=== PATIENT | female | born 1940 | race Caucasian/White ===

== ENCOUNTER → 2017-04-10 | Outpatient (CLI) | payer MEDICARE ==
[~2017-04-10] MED LIST: AMLO5TAB2 PO; ASPI-110 PO; LEVO75TA3 PO; LOSA50TA PO; METF500T PO; SIMV20TA PO; SPIR50TA PO; VITA100064 PO; VITA2000 PO; VITATAB43 PO
[2017-04-10 13:14] LABS: BLOOD, URINE NEG (NEG); COMMENT (UR) CULT NOT INDICATED; CULTURE IF INDICATED CULT NOT INDICATED; GLUCOSE,URINE NEG (NEG); KETONE, URINE NEG (NEG); MUCUS URINE FEW /lpf (OCC); NITRITE,URINE NEG (NEG); PH, URINE 5.5 (5.0-8.5); SQUAMOUS EPITHELIAL CELL URINE <1 /hpf (0-5); URINE COLOR YELLOW (YELLW/STRAW)
--- NOTE | 2017-04-10 13:15 | RADRPT ---
EXAM DATE/TIME: 04/10/2017 12:57 [facility] COMPARISON: CHEST PA & LAT, June 09, 2015, 15:27. INDICATIONS : Evaluate for pneumonia, pneumothorax or communicable disease. Preop chest for anterior cervical fusio n on 04/12/17, no chest complaints at this time MEDICAL HISTORY : None. SURGICAL HISTORY : None. ENCOUNTER: Initial ACUITY: 1 day PAIN SCORE: 0/10 LOCATION: Bilateral chest FINDINGS: PA and lateral views of the chest demonstrate the lungs to be symmetrically aerated without evidence of mass, infiltrate or effusion. There is some hyperaeration bilaterally. There is stable chronic int erstitial changes bilaterally. The cardiomediastinal contours are unremarkable. Osseous structures a re intact. CONCLUSION: No acute disease. No significant change has occurred. Heladio Raymundo MD on April 10, 2017 at 13:13 Board Certified Radiologist. This report was verified electronically.
[2017-04-10 13:16] LABS: AUTOMATED NEUTROPHIL # 5.4 TH/MM3 (1.8-7.7); BASOPHIL # 0.1 TH/MM3 (0-0.2); BASOPHIL % 0.6 % (0.0-2.0); EOSINOPHIL # 0.3 TH/MM3 (0-0.4); EOSINOPHIL % 3.2 % (0.0-4.0); HEMATOCRIT 43.6 % (35.0-46.0); HEMO FLAGS DIFF FINAL; LYMPH % 27.9 % (9.0-44.0); LYMPHOCYTE # 2.5 TH/MM3 (1.0-4.8); MEAN CELL VOLUME 89.8 FL (80.0-100.0); MEAN CORPUSCULAR HEMOGLOBIN 30.1 PG (27.0-34.0); MEAN CORPUSCULAR HGB CONC 33.5 % (32.0-36.0); MONO % 9.2 % (0.0-8.0); NEUT % 59.1 % (16.0-70.0); PLATELET COUNT 313 TH/MM3 (150-450); RED BLOOD COUNT 4.86 MIL/MM3 (4.00-5.30); RED CELL DISTRIBUTION WIDTH 13.2 % (11.6-17.2); WHITE BLOOD COUNT 9.1 TH/MM3 (4.0-11.0)
[2017-04-10 13:25] LABS: APTT (PATIENT) 28.1 SEC (24.3-30.1); PROTHROMBIN TIME - PATIENT 10.8 SEC (9.8-11.6)
[2017-04-10 13:45] LABS: ALKALINE PHOSPHATASE 92 U/L (45-117); ALT (GPT) 21 U/L (10-53); TOTAL BILIRUBIN ADULT 0.5 MG/DL (0.2-1.0)
[2017-04-10 13:54] LABS: ANION GAP 7 MEQ/L (5-15); AST (GOT) 20 U/L (15-37); BICARBONATE 28.7 MEQ/L (21.0-32.0); BLOOD UREA NITROGEN 13 MG/DL (7-18); CHLORIDE 104 MEQ/L (98-107); GLOMERULAR FILTRATION RATE 68 ML/MIN (>89); GLUCOSE,FASTING 91 MG/DL (74-99); POTASSIUM 4.2 MEQ/L (3.5-5.1); SODIUM (NA) 140 MEQ/L (136-145)
--- NOTE | 2017-04-11 09:40 | EKG ---
Date Performed: 04/10/2017 Time Performed: 12:08:01 PTAGE: 76 years EKG: Sinus rhythm WITH FREQUENT VENTRICULAR PREMATURE COMPLEXES MARKED LEFT AXIS DEVIATION RIGHT BUNDLE BRANCH BLOCK A BNORMAL ECG NO PREVIOUS TRACING DOCTOR: Davion Deluna Interpretating Date/Time 04/11/2017 09:38:53
== END ==
LOC: CPRE 11:53
PROVIDERS: ATTEND Neurological Surgery
DX: Z01.810 Encounter for preprocedural cardiovascular examination (principal); Z01.811 Encounter for preprocedural respiratory examination; Z01.812 Encounter for preprocedural laboratory examination; Z01.818 Encounter for other preprocedural examination; Z79.01 Long term (current) use of anticoagulants; R94.31 Abnormal electrocardiogram [ECG] [EKG]; M48.02 Spinal stenosis, cervical region; M50.30 Other cervical disc degeneration, unspecified cervical region; M47.12 Other spondylosis with myelopathy, cervical region
CPT/HCPCS: 36415; 71020; 80053; 81001; 85025; 85610; 85730; 93005

== ENCOUNTER 2017-04-17 06:32 | Observation (INO) | payer MEDICARE ==
[~2017-04-17] VITALS: Ht 160 cm; Wt 67.7 kg
[2017-04-17] MEDS ORDERED: SODIUM CHLOR 0.9% 1000 ML INJ 1,000 ML IV SCH (07:00)
[2017-04-17] MEDS ORDERED: METOPROLOL TARTRATE 25 MG TAB PO PRN (07:00)
[2017-04-17] MEDS ORDERED: SODIUM CHLORID 0.9% 500 ML IV PRN (07:00)
[2017-04-17] MEDS ORDERED: LACTATED RINGER'S 1000 ML IV PRN (07:00)
[2017-04-17] MEDS ORDERED: CHLORHEXIDINE GLUCONATE 2 % 1 PACK (2 CLOTHS) TOPICAL PRN (07:00)
[2017-04-17] MEDS ORDERED: INSULIN HUMAN REGULAR 1,000 UNITS/10 ML VIAL SQ PRN (07:00)
[2017-04-17 07:07] VITALS: BP 151/71; PULSE 72; RESP 18; TEMP 98; O2SAT 94
[2017-04-17] MEDS: VANCOMYCIN 1,000 MG/NS 250ML (for <70 kg) IV SCH ×2 (07:29)
[2017-04-17] MEDS ORDERED: MIDAZOLAM HCL 2 MG/2 ML VIAL ONE (07:55)
[2017-04-17] MEDS ORDERED: ACETAMINOPHEN 1000 MG/100 ML VIAL IV ONE (07:55)
[2017-04-17] MEDS ORDERED: FAMOTIDINE 20 MG/2 ML VIAL ONE (07:55)
[2017-04-17] MEDS ORDERED: BUPIVACAINE/EPINEPHRINE 0.5% PF 30 ML VIAL ONE (07:55)
[2017-04-17] MEDS ORDERED: DEXAMETHASONE SOD PHOS 4 MG/ML VIAL ONE (07:55)
[2017-04-17] MEDS ORDERED: GELFOAM SIZE 100 ONE (07:55)
[2017-04-17] MEDS ORDERED: THROMBIN (TOPICAL) 5,000 UNIT VIAL ONE (07:55)
[2017-04-17] MEDS ORDERED: fentaNYL CITRATE 250 MCG/5 ML AMP ONE (07:55)
[2017-04-17] MEDS ORDERED: VANCOMYCIN HCL 1000 MG VIAL ONE (07:55)
[2017-04-17] MEDS ORDERED: APREPITANT 40 MG CAP ONE (07:56)
[2017-04-17] MEDS ORDERED: PROPOFOL 200 MG/20 ML AMP IV ONE (10:27)
[2017-04-17] MEDS ORDERED: ePHEDrine/NS 25 MG/5 ML SYR IV ONE (10:27)
[2017-04-17] MEDS ORDERED: LACTATED RINGER'S 1000 ML INJ 1,000 ML IV ONE (10:27)
[2017-04-17] MEDS ORDERED: ONDANSETRON HCL 4 MG/2 ML VIAL IV PUSH ONE (10:27)
--- NOTE | 2017-04-17 11:03 | PD.OP ---
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 endotracheal by Merry Ernst Surgeon: Kev Le M.D. Associate Professor Of Management(s): Tammy Griggs Operation and Findings: Following administration of general endotracheal anesthesia with the neck maintained in neutral position with a Hart collar, the patient received a gram of vancomycin and Decadron 10 mg intravenously. Sequential compression devices were placed in supine position on a Darrell table and all pressure points adequately padded. The head secured in a donut and anterior cervical region then shaved and prepped with Chloraprep and sterilely draped with Ioban along with the usual sterile draping. A transverse skin incision on the right side of the neck was then made after infiltrating the skin with 0.5% Marcaine with epinephrine solution extending down through the platysma. At the anterior border of the sternocleidomastoid further dissection was undertaken developing a plane between the carotid sheath laterally and the trachea esophagus medially. There was soft tissue scar tissue noted from her previous surgery. The prevertebral fascia was exposed and dissected out. The medial attachments of the longus colli muscles were detached and a self-retaining retractor used for exposure. The C6-7 disc space was localized with a marking the disc space and using lateral fluoroscopy. [place] distraction screws 14 mm length were placed one in the C6 and one in the C7 body interbody distraction and exposure. There was significant disc degeneration with disc height collapse and anterior osteophytes noted at the C6-7 level and the osteophytes were resected with a Leksell and annulus incised with a 15 blade and further dissection undertaken using microtechnique with microscope magnification. Diskectomy was undertaken with pituitaries and the endplates were also decorticated with curettes and drill bit. And more posteriorly there was disk osteophyte complex compressing the thecal sac along with a significant uncovertebral joint hypertrophy with foraminal stenosis which was decompressed along with removal of the posterior longitudinal ligaments at both levels. The foramen was decompressed bilaterally using a Kerrison's and palpation with a nerve hook, the exiting nerve roots were felt to be free. The area was then copiously irrigated. I then placed a Peek cage packed with local autograft bone at the C6-7 interspace under fluoroscopy guidance. [place] distraction pins were removed and the holes plugged with Gelfoam for hemostasis. In order to facilitate the fusion and provide stabilization, a Precision spine cervical plate was then placed with two 14 mm variable angle screws in the C6 body and two 14 mm fixed angle screws in the C7 body. The plate screw locking mechanism was then engaged. AP and lateral fluoroscopy confirmed good placement of the construct and the retractor was then removed. Muscular bleeding points were cauterized with bipolar cautery and Gelfoam was then also used for hemostasis which was removed. The platysma was then approximated using 3-0 Vicryl interrupted stitches and 3-0 Vicryl subcuticular stitch also placed in an interrupted fashion, and final skin closure was with Mastisol and Steri-Strips. Sterile dressing was then applied. The patient was then extubated and taken to the recovery room. There are no intraoperative complications and all sponge and needle counts were correct at the end of procedure. Estimated blood loss was about 30 cc. The patient did undergo intraoperative neurologic monitoring which remained stable throughout the surgery. Kev Le MD Apr 17, 2017 11:02
[2017-04-17] MEDS ORDERED: NS + KCL 20 MEQ INJ 1,000 ML IV SCH (11:04)
[2017-04-17] MEDS ORDERED: ZOLPIDEM TARTRATE 5 MG TAB PO PRN (11:15)
[2017-04-17] MEDS ORDERED: MAGNESIUM HYDROXIDE SUSP 30 ML CUP PO PRN (11:15)
[2017-04-17] MEDS ORDERED: ONDANSETRON HCL 4 MG/2 ML VIAL IV PRN (11:15)
[2017-04-17] MEDS ORDERED: SODIUM CHLORIDE 0.9% FLUSH 10 ML FLUSH IV FLUSH PRN (11:15)
[2017-04-17] MEDS ORDERED: cloNIDine HCL 0.1 MG TAB PO PRN (11:15)
[2017-04-17] MEDS ORDERED: ACETAMINOPHEN/HYDROcodone 325 MG/10 MG TAB PO PRN ×2 (11:15)
[2017-04-17] MEDS ORDERED: MENTHOL LOZENGE BUCCAL PRN (11:15)
[2017-04-17] MEDS ORDERED: DEXAMETHASONE SOD PHOS 4 MG/ML VIAL IV SCH (11:15)
[2017-04-17] MEDS ORDERED: CYCLOBENZAPRINE HCL 10 MG TAB PO PRN (11:15)
[2017-04-17] MEDS ORDERED: GLUCAGON 1 MG/ML VIAL OTHER PRN (11:15)
[2017-04-17] MEDS ORDERED: ALUMINUM/MAGNESIUM/SIMETH 30 ML CUP PO PRN (11:15)
[2017-04-17] MEDS ORDERED: DEXTROSE 50% IN WATER 50 ML VIAL(D50) IV PRN (11:15)
[2017-04-17] MEDS ORDERED: ACETAMINOPHEN 325 MG TAB PO PRN (11:15)
[2017-04-17] MEDS ORDERED: RESP: ALBUTEROL 2.5 MG/3 ML NEB (PRN) NEB (11:15)
[2017-04-17] MEDS ORDERED: MORPHINE SULFATE 4 MG/ML INJ IV PRN (11:15)
[2017-04-17] MEDS ORDERED: PROCHLORPERAZINE INJ 10 MG/2 ML VIAL IM PRN (11:15)
[2017-04-17] MEDS ORDERED: SODIUM CHLORIDE 0.9% INJ 100 ML ONE (11:28)
[2017-04-17] MEDS ORDERED: ceFAZolin INJ 1,000 MG VIAL ONE (11:28)
[2017-04-17] MEDS ORDERED: DO NOT ADM ANY ANTICOAGULANT DRUGS PRN (11:30)
--- NOTE | 2017-04-17 11:35 | RADRPT ---
EXAM DATE/TIME: 04/17/2017 08:50 [facility] COMPARISON: No previous studies available for comparison. INDICATIONS : Cervical spine C6-7 ACDF. OR. MEDICAL HISTORY : None. SURGICAL HISTORY : None. ENCOUNTER: Initial ACUITY: 1 day PAIN SCORE: Non-responsive. LOCATION: C-spine C6-7 FINDINGS: 3 images recorded digitally in the operating room using C-arm during placement of an anterior cervica l plate. CONCLUSION: Intraoperative images. Joseph Ladd MD on April 17, 2017 at 11:32 Board Certified Radiologist. This report was verified electronically.
[2017-04-17 16:00] VITALS: BP 127/59; PULSE 86; RESP 18; TEMP 96.2; O2SAT 93
[2017-04-17] MEDS: DEXAMETHASONE SOD PHOS 4 MG/ML VIAL IV SCH ×2 (16:34→20:22)
[2017-04-17] MEDS: INSULIN NovoLIN REGULAR SUPPLEMENTAL SCALE SQ SCH ×2 (16:41→21:00)
[2017-04-17] MEDS: SODIUM CHLORIDE 0.9% FLUSH 10 ML FLUSH IV FLUSH SCH (20:22)
[2017-04-17] MEDS: DOCUSATE SODIUM 100 MG CAP PO SCH (20:22)
[2017-04-17 20:35] VITALS: BP 144/73; PULSE 80; RESP 18; TEMP 96.5; O2SAT 93
[2017-04-17] MEDS ORDERED: PRAVASTATIN SOD 40 MG TAB PO SCH (21:00)
[2017-04-17] MEDS ORDERED: amLODIPine BESYLATE 5 MG TAB PO SCH (21:00)
[2017-04-17] MEDS ORDERED: LOSARTAN 50 MG TAB PO SCH (21:00)
[2017-04-18 00:25] VITALS: BP 125/62; PULSE 89; RESP 17; TEMP 96.7; O2SAT 95
[2017-04-18] MEDS: DEXAMETHASONE SOD PHOS 4 MG/ML VIAL IV SCH (02:47)
[2017-04-18 04:25] VITALS: BP 128/64; PULSE 71; RESP 16; TEMP 96.2; O2SAT 94
[2017-04-18] MEDS ORDERED: LEVOTHYROXINE SODIUM 75 MCG TAB PO SCH (06:00)
[2017-04-18] MEDS: INSULIN NovoLIN REGULAR SUPPLEMENTAL SCALE SQ SCH ×2 (06:16→11:00)
[2017-04-18] MEDS: VANCOMYCIN 1,000 MG/NS 250ML (for <70 kg) IV SCH ×2 (06:38)
[2017-04-18 08:00] VITALS: BP 119/53; PULSE 74; RESP 19; TEMP 95.7; O2SAT 93
[2017-04-18] MEDS: DOCUSATE SODIUM 100 MG CAP PO SCH (08:25)
[2017-04-18] MEDS: SODIUM CHLORIDE 0.9% FLUSH 10 ML FLUSH IV FLUSH SCH (08:26)
[2017-04-18] MEDS ORDERED: SPIRONOLACTONE 50 MG TAB PO SCH (09:00)
[2017-04-18] MEDS ORDERED: CHOLECALCIFEROL (VIT D3) 1000 UNIT TAB PO SCH ×2 (09:00)
[2017-04-18] MEDS ORDERED: PANTOPRAZOLE SOD 40 MG DELAYED RELEASE TAB PO SCH (09:00)
[2017-04-18] MEDS ORDERED: ASPIRIN EC 81 MG TABEC PO SCH (09:00)
[2017-04-18] MEDS ORDERED: NON-FORMULARY DRUG (Cobalamine Combinations (Vitamin B12-Folic Acid) 1 TAB) PO SCH (09:00)
--- NOTE | 2017-04-18 10:24 | HHI.NSPN ---
History Chief Complaint: No complaints wants to go home. Interval History 04/18/18: Pt awake and alert. She underwent a C6/C7 anterior cervical fusion with plate placement on 04/17/17. She states the numbness in the hands has resolved. No radiculopathy in UEs. She is voiding well. Review of Systems General: Negative for: fever, chills, insomnia Respiratory: Negative for: shortness of breath, cough, sputum Cardiovascular: Negative for: chest pain Gastrointestinal: Negative for: nausea, vomitting, diarrhea, constipation Exam Results Vital Signs Date Time Temp Pulse Resp B/P Pulse Ox O2 Delivery O2 Flow Rate FiO2 04/18/17 08:00 95.7 74 19 119/53 93 04/17/17 16:01 21 04/17/17 13:00 Nasal Cannula 2 Intake and Output 04/17/17 04/17/17 04/18/17 08:00 16:00 00:00 Intake Total 1812 ml 1160 ml Output Total 15 ml Balance 1797 ml 1160 ml Physical Examination Resp: CTA bilaterally Heart: NSR no murmurs Abd: Soft positive bs Skin: Incision clean and dry. No signs of infection. New bandage placed by RN this morning. Muscle: Moves all 4 extremities well. Ambulating independently. Neuro: Pt awake and alert. Follows commands well. Speech clear and appropriate. Lab, Micro, Other Results Last Impressions Cervical Spine X-Ray 04/17/17 0000 Signed Impressions: Service Date/Time: Monday, April 17, 2017 08:50 - CONCLUSION: Intraoperative images. Joseph Ladd MD 04/17/17 04/17/17 04/18/17 15:00 23:00 07:00 Intake Total 1812 ml 1160 ml 240 ml Output Total 15 ml Balance 1797 ml 1160 ml 240 ml Intake Oral 290 ml 480 ml 240 ml IV Total 322 ml 680 ml Other 1200 ml Output Estimated Blood Loss 15 ml # Voids 3 2 3 # Bowel Movements 0 0 Medical Decision Making Impression and Plan A: 77 y/o FM s/p C6/C7 anterior cervical fusion P: Discharge home Follow up as directed in 6 weeks with AP and lateral cervical x-rays prior to appt. Jeffrey Becerra Apr 18, 2017 10:24
== END 2017-04-18 11:38 | disposition home or self-care (01) ==
LOC: HSDC 06:32 → HSDI 11:08 → N06A 13:27
PROVIDERS: ADMIT Neurological Surgery; ATTEND Neurological Surgery
DX: M48.02 Spinal stenosis, cervical region (principal); M25.78 Osteophyte, vertebrae; M50.023 Cervical disc disorder at C6-C7 level with myelopathy; Z98.1 Arthrodesis status; I10 Essential (primary) hypertension; E78.5 Hyperlipidemia, unspecified; E11.40 Type 2 diabetes mellitus with diabetic neuropathy, unspecified; Z86.73 Personal history of transient ischemic attack (TIA), and cerebral infarction without residual deficits; Z96.642 Presence of left artificial hip joint; Z88.8 Allergy status to other drugs, medicaments and biological substances; Z88.6 Allergy status to analgesic agent; Z88.1 Allergy status to other antibiotic agents; Z91.041 Radiographic dye allergy status; Z91.013 Allergy to seafood
CPT/HCPCS: 20936; 22551; 22853; 72040; 76000; 82948; 94150; 96365; 96372; 96375; 96376; C1713; G0378; J0131; J0690; J1100; J2250; J2405; J3010; J3370; J3480; J7050; J7120; J8501; L0150